=== PATIENT | male | born 1955 | race Caucasian/White ===

== ENCOUNTER 2023-07-19 10:55 | Emergency (ER) | payer MEDICARE, OTHER, SELFPAY ==
[2023-07-19 11:17] VITALS: BP 146/79
[2023-07-19 11:44] VITALS: BP 110/66
[2023-07-19 12:18] VITALS: BMI 37.9
--- NOTE | 2023-07-19 12:22 | ED.GENMED ---
History of Present Illness
General
Chief Complaint: Heart Rate Problem
Source: patient and family
Exam Limitations: none
Time Seen by Provider: 07/19/23 11:40
Travel History
Have you had any contact with someone who has COVID-19?: No
Do you have any symptoms of coronavirus? Fever > 100 degrees, chills, cough, shortness of breath, sore throat, loss of taste or smell, muscle aches, or headache?: No
History of Present Illness
History of Present Illness:
67-year-old male presents with fluttering of his heart. Patient states that he has a history of A-fib. He knows exactly when he goes in A-fib because he feels his heart fluttering. He denies shortness of breath. No swelling. No chest pain.
Patient noticed it this morning and called his doctor. Cardiology asked to check his rate and his rate was controlled so he decided to stay home. Later he checked his heart rate again and it was up to 150. The patient currently offers no other
complaints. He recently did have a left total knee replacement but has been back on his Eliquis for 3 weeks
Past History
Past History
ED Past Medical History: Arrthythmia, HTN and Other (Paroxysmal atrial fib)
ED Past Surgical History: None and Orthopedic
Social History
Tobacco: Non-smoker
Alcohol: None
Drug: None
Personal:
Living: alone
Family History
Family History: Other (Father with prostate cancer, brother with prostate cancer, mother with coronary disease)
Phy Exam
Physical Exam
Physical Exam:
CONSTITUTIONAL Patient alert and oriented to person, place and time. Well-appearing. Vital signs reviewed.
HEAD atraumatic, normocephalic.
EYES eyelids normal to inspection, Pupils equally round and reactive to light, Extraocular muscles intact, Conjunctiva normal, Sclera normal.
NECK normal range of motion, Trachea midline, no jugular venous distention.
RESPIRATORY CHEST No respiratory distress noted, Chest expansion equal, Bilateral breath sounds clear.
CARDIOVASCULAR irregularly irregular and tachycardic.
ABDOMEN abdomen nontender, Bowel sounds normal. No distention.
BACK normal inspection, no obvious deformities
UPPER EXTREMITY range of motion normal, Motor strength normal, no cyanosis, no edema.
LOWER EXTREMITY range of motion normal, Motor strength normal, no cyanosis, no edema.
NEURO Speech normal, No focal motor deficits, [place] coma scale 15, Memory normal, Cranial Nerves intact to screening exam.
SKIN skin warm, dry, and normal in color.
Course
Orders/Labs/Results
Orders:
Orders
07/19/23 10:58
ECG [Electrocardiogram (*1)] Urgent
Reason for Study: Atrial Fibrillation
EKG- Treatment ONCE
07/19/23 12:22
Diltiazem 125 mg/125 ml Nss [Cardizem] 125 mg in 125 ml IV NOW
Initial dose in mg/hr, then titrate:: 5
Titrate to keep:: Heart rate 80-100 bpm
Titrate by mg/hr:: 5 mg/hr
Frequency of titrations (minutes):: 15
Maximum dose in mg/hr:: 15
Diltiazem HCl [Cardizem] 20 mg IV NOW STA
07/19/23 12:23
Cardiac Monitoring- Treatment ONCE
07/19/23 12:30
Complete Blood Count/With Diff Urgent
Comprehensive Metabolic Panel Urgent
Magnesium Urgent
TSH Urgent
Abnormal Lab Results
07/19/23
12:30
RBC 3.98 L 10^6/uL
(4.70-6.10)
Hct 36.6 L %
(39.0-52.0)
MCH 32.7 H pg
(27.0-31.0)
Absolute Monos (auto) 1.1 H 10^3/uL
(0.1-0.6)
Monocytes % 13.8 H %
(1.7-9.3)
Sodium 133 L mmol/L
(135-145)
Glucose 101 H mg/dl
(70-99)
07/19/23 12:30
07/19/23 12:30
Vital Signs
Initial and Last Documented VS:
Initial Vital Signs
Temp Pulse Resp BP Pulse Ox
97.6 F 55 18 146/79 99
07/19/23 11:17 07/19/23 11:17 07/19/23 11:17 07/19/23 11:17 07/19/23 11:17
Last Documented Vital Signs
Temp Pulse Resp BP Pulse Ox
97.6 F 121 15 107/59 99
07/19/23 11:17 07/19/23 12:42 07/19/23 11:45 07/19/23 12:42 07/19/23 11:17
MDM/Problems Addressed
MDM/Problems Addressed:
Atrial fibrillation with RVR
*Pulse Oximetry
Patient hypoxic: no
*EKG
Interpreted by ED Provider?: Yes
Interpretation: abnormal
Rate: tachycardiac
Rhythm: a-fib
[place]: normal axis
Ischemia: non-specific ST changes
*[facility] Interpretation
Rate: tachycardiac
Interpretation: abnormal
Rhythm: a-fib
*Critical Care Note
Total Time (30-74mins, 75-104mins- exclusive of procedures): 30 minutes
Data Reviewed
Source: patient and family
Further Testing Considered But Not Given:
Consider cardioversion but patient states weight is stable
Patient Management
Escalation/DeEscalation of care consider admission/obs:
67-year-old male who presents in A-fib. Is back to his anticoagulation. Patient is stable. Heart rate is much better. Hold Cardizem. Anticipate discharge for outpatient follow-up with cardiology and possible outpatient cardioversion.
Considered cardioversion but patient is eating a sandwich and drinking a Diet Coke. Stable for outpatient follow-up
ED Attending Note
-
Portions of this chart may have been created with voice recognition software.� Occasional wrong word or��sound alike� substitutions may have occurred due to the inherent limitations of voice recognition software.
Discharge Plan
Departure
Patient Disposition: Home (Routine Discharge)
Date of Disposition: 07/19/23
Time of Disposition: 13:57
Patient with high blood pressure during this ER visit?: No
Discharge Problem:
Atrial fibrillation with RVR
Instructions: Atrial Fibrillation (DC)
Prescriptions:
No Action
rivaroxaban [Xarelto] 20 MG tablet
20 mg PO QPM Qty: 15 0RF
amlodipine 5 MG tablet
5 mg PO DAILY
lisinopril 20 MG tablet
20 mg PO Daily
Referrals:
David Brock DO [Family Provider] -
Activity Restrictions/Additional Instructions:
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 If symptoms persist, cardioversion may be necessary. Return immediately for lightheadedness, passing out episode, shortness of breath, weakness of any kind or any other concerns.
Interventions
Interventions:
*Risk Screen - Suicide Last Done: 07/19/23 12:18
*General Assessment Last Done: 07/19/23 11:17
*Neglect/Abuse Screening Last Done: 07/19/23 12:06
ED- Fall Risk Assessment Last Done: 07/19/23 12:17
*ED COVID-19 Vaccine History Last Done: 07/19/23 11:17
ED- Cardiac Assessment Last Done: 07/19/23 12:17
ED- Pulmonary Assessment Last Done: 07/19/23 12:18
[2023-07-19 12:37] LABS: % Basophils 0.6 % (0-2); % Eosinophils 3.9 % (0-6); % Immature Granulocytes 0.3 % (0-0.5); % Lymphocytes 21.5 % (20.5-51.1); % Monocytes 13.8 % (1.7-9.3); % Neutrophils 59.9 % (42.2-75.2); Absolute Basophils 0.1 10^3/uL (0-0.2); Absolute Eosinophils 0.3 10^3/uL (0-0.7); Absolute Lymphocytes 1.7 10^3/uL (1.2-3.4); Absolute Monocytes 1.1 10^3/uL (0.1-0.6); Absolute Neutrophils 4.8 10^3/uL (1.4-6.5); Hematocrit 36.6 % (39.0-52.0); Mean Corp Hgb Conc. 35.5 g/dL (33.0-37.0); Mean Corpuscular Hgb 32.7 pg (27.0-31.0); Mean Platelet Volume 9.6 fL (7.4-10.4); Nucleated Red Blood Cells % 0 % (-); Platelet Count 276 10^3/uL (130-400); Red Blood Cell Count 3.98 10^6/uL (4.70-6.10); Red Cell Dist. Width 12.5 % (11.5-14.5)
[2023-07-19 12:38] VITALS: BP 142/127
[2023-07-19 12:40] VITALS: BP 107/59
[2023-07-19] MEDS: CARDIZEM 125 IV (12:41)
[2023-07-19] MEDS: CARDIZEM 20 MG IV (12:42)
[2023-07-19 12:59] LABS: ALT (SGPT) 18 U/L (0-50); AST (SGOT) 24 U/L (17-59); Albumin 3.7 g/dl (3.5-5.0); Alkaline Phosphatase 89 U/L (38-126); Blood Urea Nitrogen 20 mg/dl (9-20); Calcium 8.7 mg/dl (8.4-10.2); Carbon Dioxide 22 mmol/L (22-30); Chloride 106 mmol/L (98-107); Estimated Creatinine Clearance 120 ml/min; Glucose 101 mg/dl (70-99); Magnesium 2.2 mg/dl (1.6-2.3); Potassium 4.2 mmol/L (3.5-5.1); Sodium 133 mmol/L (135-145); Total Bilirubin 0.8 mg/dl (0.2-1.3); Total Protein 6.5 g/dl (6.3-8.2); eGFR > 60.00
[2023-07-19 13:00] VITALS: BP 102/46
[2023-07-19 13:34] LABS: TSH 0.63 uIU/ml (0.47-4.68)
== END 2023-07-19 15:02 | disposition home or self-care (01) ==
LOC: EMR 10:55
PROVIDERS: EMERGENCY PHYSICIAN Emergency Medicine; FAMILY PHYSICIAN Family Medicine
DX: I48.0 Paroxysmal atrial fibrillation (principal); I10 Essential (primary) hypertension; Z96.652 Presence of left artificial knee joint; Z98.890 Other specified postprocedural states; Z79.01 Long term (current) use of anticoagulants
CPT/HCPCS: 99291; 96365; 80053; 83735; 84443; 85025; 93005

== ENCOUNTER 2023-07-30 13:39 | Outpatient (RCR) | payer MEDICARE, OTHER, SELFPAY | END 2023-07-30 23:59 | disposition home or self-care (01) | LOC: RPT 13:39 | PROVIDERS: ATTENDING PHYSICIAN Orthopaedic Surgery; FAMILY PHYSICIAN Family Medicine | DX: Z47.1 Aftercare following joint replacement surgery (principal); Z96.652 Presence of left artificial knee joint; Z73.6 Limitation of activities due to disability | CPT/HCPCS: 97010; 97110; 97162; 97530 ==

== ENCOUNTER 2023-08-26 07:01 | Outpatient (RCR) | payer MEDICARE, OTHER, SELFPAY | END 2023-08-31 10:35 | disposition home or self-care (01) | LOC: RPT 07:01 | PROVIDERS: ATTENDING PHYSICIAN Orthopaedic Surgery; FAMILY PHYSICIAN Family Medicine | DX: Z47.1 Aftercare following joint replacement surgery (principal); Z73.6 Limitation of activities due to disability; R26.2 Difficulty in walking, not elsewhere classified; M62.81 Muscle weakness (generalized); Z96.652 Presence of left artificial knee joint | CPT/HCPCS: 97010; 97110 ==